=== PATIENT | male | born 1975 | race Caucasian/White ===

== ENCOUNTER 2017-02-02 17:45 | Emergency (ER) | payer OTHER ==
[2017-02-02 17:50] VITALS: BP 133/80; BMI 29.7
--- NOTE | 2017-02-02 18:56 | DR.URIAD ---
HPI - Time Seen Time seen: 18:53 - PCP Primary Care Physician: NFD - Complaint Chief Complaint Doctors Comments: Patient with a history of asthma states that his albuterol is not helping. Admits to smoking 1ppd. Chief Complaint:: PT C/O CCC, CHEST PAIN AND DIZZINESS... Self Treatment fo Chief Complaint: ALBUTEROL. NYQUIL - Source History Provided: Patient - Mode of Arrival Mode of Arrival: Ambulatory - Timing Onset of Chief Complaint: 01/31/17 - Quality Shortness of Breath: Mild PMH - PMH Past Medical History: No Past Surgical History: No Surgical History: CABG/Valve Surgery - Family History History of Family Medical Conditions: Yes Family Medical History: Diabetes Mellitus - Social History Does patient currently use any type of tobacco product: Yes Have you used tobacco products in the last 12 months: Yes Type of Tobacco Use: Cigarettes How many years tobacco product used: 25 Does any household member use tobacco: No Alcohol Use: None, Rarely Do you use any recreational Drugs:: No Lives With: Family Lives Where: Home - infectious screening In the last 2 months have you had wt loss of >10#?: NO Have you had fever, night sweats or hemotysis?: No Have you traveled outside the country in the last 6 months?: No Isolation: Standard ROS - Review of Systems Eyes: No Symptoms Reported ENTM: No Symptoms Reported Respiratoy: No Symptoms Reported Cardiovascular: No Symptoms Reported Gastrointestinal/Abdominal: No Symptoms Reported Genitourinary: No Symptoms Reported Neurological: No Symptoms Reported Musculoskeletal: No Symptoms Reported Integumentary: No Symptoms Reported Hematologic/Lymphatic: No Symptoms Reported Endocrine: No Symptoms Reported Psychiatric: No Symptoms Reported All Other Systems: Reviewed and Negative PE - Vital Signs Vitals: Temperature 98.3 F Pulse Rate 101 Respiratory Rate 18 Blood Pressure 133/80 O2 Sat by Pulse Oximetry 94 - General General Appearance: Alert - ENT ENT Exam: Normal Exam, Normal Oropharynx External Ear Exam: Normal External Inspection TM/Canal Exam: Bilateral Normal Nose Exam: Normal Nose Exam Nasal Speculum Exam: Bilateral Normal Mouth Exam: Normal Inspection Throat Exam: Normal Inspection - Neck Neck Exam: Normal Inspection, Full ROM - Chest Chest Inspection: Normal Inspection - Respiratory Respiratory Exam: negative: Accessory Muscle Use, Chest Wall Tenderness Respiratory Exam: Bilateral Wheezing - Cardiovascular Cardiovascular Exam: Regular Rate, Normal Rhythm - Abdominal Exam Abdominal Exam: Normal Inspection, Normal Bowel Sounds Abdominal Tenderness: negative: RUQ, RLQ, LUQ, LLQ, Epigastrium, Suprapubic, Diffuse, Mild, Moderate, Severe, Other - Extremeties Extremities Exam: Normal Inspection - Back Back Exam: Normal Inspection - Neurologic Neurological Exam: Alert, Oriented X3, CN II-XII Intact - Psychiatric Psychiatric Exam: Normal Affect, Normal Mood - Skin Skin Exam: Warm, Dry ROR - XRAY XRAY Interpreted by: Self (Chest: Bronchitis vs COPD) - Diagnosis Discharge Problem: Asthmatic bronchitis with exacerbation Qualifiers: Asthma severity: mild Asthma persistence: intermittent Qualified Code(s): J45.21 - Mild intermittent asthma with (acute) exacerbation - Discharge Plan Condition: Stable - Follow ups/Referrals Follow ups/Referrals: NFD,None [Primary Care Provider] - 3 days - Instructions
[2017-02-02] MEDS ORDERED: DUONEB 0.5 MG/3 MG ONE ×2 (18:57→19:04)
[2017-02-02] MEDS ORDERED: DUONEB 0.5 MG/3 MG NEB ONE ×2 (18:57)
[2017-02-02] MEDS ORDERED: SOLU-Medrol 125 MG VIAL IVP ONE (18:57)
[2017-02-02] MEDS ORDERED: SOLU-Medrol 125 MG VIAL ONE (18:57)
[2017-02-02] MEDS ORDERED: NS 1000 ML 1,000 ML IV SCH (19:00)
[2017-02-02] MEDS ORDERED: SALINE 0.9% 3 ML NEB TX ONE (19:05)
[2017-02-02] MEDS ORDERED: NS 1000 ML 1,000 ML ONE (19:07)
--- NOTE | 2017-02-02 20:21 | RAD ---
HISTORY: Cough, shortness of breath, congestion, fever Study: Single view chest Comparison: None Findings: Single portable view is submitted. The lungs are clear without consolidation, effusion or pneumothora x. The cardiac and mediastinal contours are within normal limits. The soft tissues are unremarkable. IMPRESSION: 1. No acute cardiopulmonary abnormality. Reported By:
== END 2017-02-02 20:47 | disposition home or self-care (01) ==
LOC: ER 17:57
DX: J45.21 Mild intermittent asthma with (acute) exacerbation (principal)
CPT/HCPCS: 71010; 87502; 94640; 96365; 96374; 99283; A4222; J2930; J7620